=== PATIENT | female | born 1960 | race Caucasian/White ===

== ENCOUNTER 2018-05-18 19:44 | Emergency (ER) | payer MEDICARE, MEDICAID ==
--- NOTE | 2018-05-18 20:37 | ED Physician Chart ---
ED Chief Complaint/HPI - Patient Information Date Seen:: 05/18/18 Time Seen:: 20:32 Chief Complaint:: LT EYE PAIN History of Present Illness:: 58 YR OLD FEMALE WITH LT EYE PAIN REDDNESS IRRITATION AFTER REPLACING HER CONTACT LENS THAT FELL IN THE GROUND WHERE DOG POOP WAS AROUND Allergies:: Allergies Allergy/AdvReac Type Severity Reaction Status Date / Time onabotulinumtoxinA Allergy Verified 05/18/18 20:00 [From Botox] Sulfa (Sulfonamide Allergy Verified 05/18/18 20:00 Antibiotics) Tetracyclines Allergy Verified 05/18/18 20:00 Vitals:: Vital Signs - 8 hr 05/18/18 20:00 Temp 97.4 F HR 89 RR 18 BP 161/95 O2 Sat % 98 ED Review of Systems - Review of Systems General/Constitutional: No fever, No chills, No weight loss, No weakness, No diaphoresis, No edema, No loss of appetite Skin: No skin lesions, No rash, No bruising Head: No headache, No light-headedness Eyes: Other (EYE REDDNESS PAIN) ENT: No earache, No nasal drainage, No sore throat, No tinnitus Neck: No neck pain, No swelling, No thyromegaly, No stiffness, No mass noted Cardio Vascular: No chest pain, No palpitations, No PND, No orthopnea, No edema Pulmonary: No SOB, No cough, No sputum, No wheezing GI: No nausea, No vomiting, No diarrhea, No pain, No melena, No hematochezia, No constipation, No hematemesis G/U: No dysuria, No frequency, No hematuria Musculoskeletal: No bone or joint pain, No back pain, No muscle pain Endocrine: No polyuria, No polydipsia Psychiatric: No prior psych history, No depression, No anxiety, No suicidal ideation Hematopoietic: No bruising, No lymphadenopathy Allergic/Immuno: No urticaria, No angioedema Neurological: No syncope, No focal symptoms, No weakness, No paresthesia, No headache, No seizure, No dizziness, No confusion, No vertigo ED Past Medical History - Past Medical History Past Medical History: HTN, DM, Other (FIBROMYALGIA) Family Medical History - Family Member Mother History Unknown: Yes ED Physical Exam - Physical Examination General/Constitutional: Awake Other Eyes comments:: LT EYE CONJUNCTIVAL REDDNESS ENMT: External ears, nose nl Neck: Nontender Respiratory: Nl effort/Exclusion Cardio Vascular: RRR GI: No tenderness/rebounding/guarding : No CVA tenderness Extremities: No tenderness or effusion Neuro/Psych: Alert/oriented ED Assessment - Assessment General Assessment: LT CONJUNCTIVITIS ED Septic Shock - . Is Septic Shock (SBP<90, OR Lactate>4 mmol\L) present?: No - <6hrs of presentation: Vital Signs: Vital Signs - 8 hr 05/18/18 20:00 Temp 97.4 F HR 89 RR 18 BP 161/95 O2 Sat % 98 ED Reassessment (Disposition) - Reassessment Reassessment:: LT EYE IRRITATION CONJUNCTIVITIS - Diagnosis Diagnosis:: LT EYE CONJUNCTIVITIS - Aftercare/Follow up Instructions Aftercare/Follow-Up Instructions:: Counseled pt regarding lab results/diagnosis & need follow up - Patient Disposition Discharge/Transfer:: Home Condition at Disposition:: Stable
== END 2018-05-18 21:15 | disposition home or self-care (01) ==
LOC: ER 19:44
DX: H10.9 Unspecified conjunctivitis (principal); I10 Essential (primary) hypertension; E11.9 Type 2 diabetes mellitus without complications; Z88.1 Allergy status to other antibiotic agents
CPT/HCPCS: Z7502